=== PATIENT | female | born 1940 | race Caucasian/White ===

== ENCOUNTER 2017-01-29 13:35 | Observation (INO) | payer MEDICARE, BC ==
--- NOTE | ~2017-01-29 | HP ---
History And Physical [place] [address] [facility] [place]. [address] NAME: HAYLIE HARRIS : 38 STATUS : ADM IN PAT#: [id number] AGE: 76 ADM/REG DATE : 01/29/17 MR#: [id number] REPORT SERV DATE: 01/29/17 DICTATED BY: STEPHANIE NIEVES DATE: 01/29/17 REPORT STATUS : Draft TRANSCRIBED BY: MODL DATE: 01/29/17 DATE OF ADMISSION: 01/29/2017 INDICATION: Acute thrombus, jugular system. HISTORY OF PRESENT ILLNESS: The patient is a 76-year-old white female, renal transplant patient with underlying coronary artery disease, hypertension, hyperlipidemia, and peripheral vascular disease. At her recent clinic visit, she was noted to have a carotid bruit and she was sent for carotid Dopplers. I was notified from the vascular lab today that she had an acute thrombus in her jugular system. She is admitted for further evaluation and IV heparin therapy. CURRENT HOME MEDICATIONS: Allopurinol 100 per day, carvedilol 6.25 b.i.d., Chlor-Trimeton p.r.n., Crestor 5 at h.s., cyclosporine 200 mg every other day, Ocuvite daily, oxycodone p.r.n., prednisone 10 per day, and vitamin B12 daily. ALLERGIES OR INTOLERANCES: Aspirin, benzodiazepine, cephalosporins, IV contrast dye, iodine, lorazepam, and Povidone soap. SOCIAL HISTORY: Negative for alcohol or tobacco use. FAMILY HISTORY: Negative for coronary disease at a young age. PAST MEDICAL HISTORY/REVIEW OF SYSTEMS: See note above. She has had a previous thoracic aortic dissection, [place] type A in 2011, resulting in six-month hospital course and a hospitalization at [facility]. She has moderate prosthetic aortic valve regurgitation, previous myocardial infarction (10/1995), COPD, and obstructive sleep apnea. She is compliant with the CPAP. PHYSICAL EXAMINATION: VITAL SIGNS: 76-year-old white female with blood pressure 137/77, pulse 67 and regular, respirations 22. SKIN: No xanthelasmas. HEENT: She is normocephalic. NECK: JVD is not overtly elevated. CHEST: Nonlabored. There are no crackles. CARDIAC: S1 normal, S2 physiologically split. There is a 2/6 systolic ejection murmur heard loudest at the base, and there is a 2/6 blowing diastolic murmur heard loudest at the apex. There is a 1/6 holosystolic murmur transmitted to the axilla. ABDOMEN: Soft. EXTREMITIES: Without edema. Pulses are +1 and symmetric. NEUROLOGIC: No focal deficits. LABORATORY DATA: See vascular imaging report, not yet available on medical record system. Her BUN is 29, creatinine 1.12 with a potassium of 4.8 and glucose of 123. White count 9.9, hemoglobin 12.1, platelets 216,000. INR is 1. History And Physical [address] [address] NAME: HAYLIE HARRIS : 38 STATUS : ADM IN [facility]#: [id number] AGE: 76 ADM/REG DATE : 01/29/17 MR#: [id number] REPORT SERV DATE: 01/29/17 DICTATED BY: STEPHANIE NIEVES DATE: 01/29/17 REPORT STATUS : Draft TRANSCRIBED BY: TAWANA DATE: 01/29/17 IMPRESSION: Acute central venous thrombosis. She will be admitted for further evaluation and therapy. Consult rendered to Nephrology and Vascular Surgery. TUAN/TAWANA Stephanie Nieves M.D. / [id number] CC: Stephanie Nieves M.D. [facility]
--- NOTE | ~2017-01-29 | CN ---
Consultation Report [facility] [address] [place]. [address] NAME: HAYLIE HARRIS : 38 STATUS : ADM IN PAT#: [id number] AGE: 76 ADM/REG DATE : 01/29/17 MR#: [id number] REPORT SERV DATE: 01/29/17 DICTATED BY: TIMOTHY AUGUSTINE DATE: 01/29/17 REPORT STATUS : Draft TRANSCRIBED BY: TAWANA DATE: 01/29/17 CONSULT NOTE DATE OF CONSULTATION: 01/29/2017 REASON FOR CONSULTATION: Evaluation for DVT. BRIEF HISTORY: The patient is a 76-year-old female with a past medical history significant for an aortic dissection, carotid stenosis, colon cancer, renal failure necessitating kidney transplant, renal cell carcinoma, hypertension, COPD, hyperlipidemia, and coronary artery disease who was admitted to the hospital after she was found to have an incidental finding of an IJ DVT. I was consulted for evaluation and treatment. The patient says that she has had no facial pain or swelling. She has no shortness of breath. She has had no arm swelling. She has no chest tightness. She said that she was somewhat surprised that she was admitted to the hospital because of this blood clot. She says that she has had a known history of narrowing in her arteries in her neck and she has actually had surgery for this in the past. She said that the surgery was performed here at [facility], but she is unable to recall who performed the surgery. The patient is unable to provide any other reliable history and suggests that I call her daughters, who unfortunately are unavailable via the telephone. Once again, the patient denies any other complaints. PAST MEDICAL HISTORY: As above. She also has a history of chronic gastritis, osteoporosis, gout, and DJD. She has obstructive sleep apnea and wears a CPAP. PAST SURGICAL HISTORY: Includes kidney transplant and prosthetic aortic valve replacement. She has had PCIs and a tracheostomy. SOCIAL HISTORY: She denies tobacco, alcohol, or drug use. FAMILY HISTORY: Unknown. MEDICATIONS AND ALLERGIES: Documented on the chart and were reviewed. She has numerous allergies documented. REVIEW OF SYSTEMS: A complete review of systems was performed and is negative with the exception of the aforementioned findings. PHYSICAL EXAMINATION: VITAL SIGNS: Documented on the chart and were reviewed. GENERAL: The patient is awake, alert, oriented, and in no apparent distress. She is a poor historian. HEENT/NECK: Her head and neck examination is benign with the exception of the scars from her tracheostomy and her left carotid endarterectomy. I do not appreciate any carotid Consultation Report [place] [address] [address] NAME: HAYLIE HARRIS : 38 STATUS : ADM IN PAT#: [id number] AGE: 76 ADM/REG DATE : 01/29/17 MR#: [id number] REPORT SERV DATE: 01/29/17 DICTATED BY: TIMOTHY AUGUSTINE DATE: 01/29/17 REPORT STATUS : Draft TRANSCRIBED BY: MODRaz DATE: 01/29/17 bruits. She has no facial swelling. HEART: Her heart has a regular rate and rhythm. LUNGS: Clear. ABDOMEN: Soft, nontender, and nondistended with a nonaneurysmal aorta. EXTREMITIES: She has a normal complement of upper extremity pulses without any significant edema or ischemic ulcerations. She has weakly palpable femoral pulses. I think I could feel popliteal and pedal pulses. She has no significant edema or ischemic ulcerations. NEUROLOGICAL: Grossly nonfocal. MUSCULOSKELETAL: Otherwise, benign. LABORATORY DATA: Her laboratory investigations are fairly unremarkable. She has no imaging reports available. I went back and found a carotid duplex that was performed today. On the imaging, it looks like she has a left internal jugular DVT. Once again, report is not available and the images that are available for my review are thumbnail size images, so I cannot really tell what is going on with the carotid arteries. There are reports of her having a thoracic aortic aneurysm that I confirmed on CT imaging. There is no CT of the chest available. The upper cuts of her CT of her abdomen showed a 3.7 cm thoracic aneurysm. ASSESSMENT AND PLAN: It looks like this lady has a left internal jugular vein deep venous thrombosis. There was some question about her having superior vena cava syndrome, but I do not appreciate any significant edema and she does not have any complaints that would fit with this. I would simply anticoagulate her for the next three months. This deep venous thrombosis actually looks somewhat chronic in nature based on the echogenicity that I saw on the thumbnail images. With regard to her thoracic aneurysm, I would like to see her back in a year with a CT scan of her chest, abdomen, and pelvis, so I can get better idea of what is going on. I think this could be performed without intravenous contrast until we see that this would potentially meet size criteria to fix. I am not sure that she would be a very good candidate for repair, but I think that we should at least see how big her aorta is before jumping to that conclusion. I will be available as needed. FOOD STYLIST/MODL Timothy Augustine M.D. / [id number] CC: Radha Kauffman M.D.
[~2017-01-29 13:35] MED LIST: ACET500CAP PO; ACETUDL PEG; ANTACID PO; ATROVENTUD INH; ATV1 IV; AZACT2 IV; BACDS PO; BANOPHEN25 MG PEG; BANOPHEN25 MG PO; BISR PR; C1 PO; CARBIDOPA-LEVODOPA PO; CELEXA10 MG/5 ML OR; CELEXA10 PEG; CELEXA10 PO; CHLOR-PHENIR4 MG PO; CHLOR-TRIMETON4 MG PO; CITRACAL PO; COREG PO; COREG12 PO; COREG6 PO; COUMADIN3 MG PO; CRESTOR10 PO; CRESTOR20 MG PO; CRESTOR5 MG PO; CYANO1000T PO; CYCLOSPORINE 100 MG PO; CYCLOSPORINE100 MG OR; CYCLOSPORINE100 MG PO; CYCLOSPORINE25 MG PEG; DIOCTO50 MG/5 ML PEG; DUONEB INH; FISH-EPA1000 MG PO; FLEX PO; GENGRAF100 MG OR; GERI-LANTA PEG; HYDRALAZINE PO; ISOPTINSR PO; JEVITY 1.2 PEG; L40 IV; LACT30UDL PO; LEVAQUIN5T PO; LOP25 PEG; LOP25 PO; LORTAB 5 PO; LOVENOX40 SC; MAALOX; MAALOX PO; MIRALAXPKT PEG; MIRALAXPKT PO; NEORAL100 MG/ML PEG; NEXIUM OTC PO; NEXIUM20 M1 PO; NEXIUM40 PEG; NORCO1 TA1 PO; NORV5 PO; NOVOLOG SC; NYS500UDL PO; OCUVITE PO; P1 PO; P10 PEG; P10 PO; PARC25-100 PEG; PAX10 PO; PCET; PCET PO; PERFOROM INH; PHENADOZ25 MG RE; PHENERGAN 2525 MG/M1 PO; PHILLIPS M800 MG/5 M PO; PRED50B PO; PREV30 PO; PROTONIX PO; REG PO; REG5 PEG; ROBITUSS12 PEG; SANDIMMUNE100 MG PO; SIN25 PO; SOLU-CORTEF100 MG IV; T PO; TICLID250 MG OR; TIGAN300 MG PEG; TRAZ50 PO; TRAZODONE150 MG PO; TUMSROLL; TYLENOL 8 HR650 MG PO; TYLENOL ARTH650 MG PR; ULTRAM50 PO; V5 PO; VANCOCIN HCL125 MG PO; X25 PO; Z100 PO; ZANTAC 150 PO; ZANTAC 75 PO; ZEMPLAR2 PO; ZOCOR40 PEG; ZOFRAN2ML IM; ZOFRAN2ML IV; [UNRECOGNIZED DRUG - CODE] IV; [UNRECOGNIZED DRUG - OTHER] PO
[2017-01-29 14:50] LABS: BASOPHILS 0.1 %; BASOPHILS ABSOLUTE 0.01 10/3/uL (0.0-0.16); EOSINOPHILS 0 %; HEMATOCRIT 38.4 % (36.0-48.0); HEMOGLOBIN 12.1 g/dL (12.0-16.0); IMMATURE GRANULOCYTES 0.3 %; IMMATURE GRANULOCYTES ABSOLUTE 0.03 10/3/uL (0.0-0.11); LYMPHOCYTES 10.2 %; LYMPHOCYTES ABSOLUTE 1.01 10/3/uL (0.67-4.30); MEAN CORPUS HGB CONC 31.5 g/dL (32.0-36.0); MEAN CORPUSCULAR HEMOGLOB 31.2 pg (26.0-34.0); MONOCYTES 2.8 %; MONOCYTES ABSOLUTE 0.28 10/3/uL (0.21-1.20); NEUTROPHILS 86.6 %; PLATELET COUNT 216 10/3/uL (150-400); RBC DISTRIBUTION WIDTH 15.4 % (12.0-16.0); RED CELL COUNT 3.88 10/6/uL (4.0-5.6); WHITE BLOOD CELLS 9.9 10/3/uL (4.5-10.5)
[2017-01-29 14:52] LABS: MANUAL DIFF NO %
[2017-01-29 14:57] LABS: PARTIAL THROMBO TIME 28.3 SEC (22.5-37.2); PROTIME (NOT ORD) 13.4 SEC (12.0-14.5)
[2017-01-29 15:07] LABS: A/G RATIO 0.9 (0.7-1.9); ALBUMIN 3.5 G/DL (3.5-5.0); ALKALINE PHOSPHATASE 72 U/L (45-117); BUN (BLOOD UREA NITROGEN) 29 MG/DL (6-23); CALCIUM, SERUM 9.3 MG/DL (8.5-10.4); CHLORIDE, SERUM 106 MMOL/L (96-112); CO2 (CARBON DIOXIDE) 31 MMOL/L (24-34); CREATININE 1.12 MG/DL (0.55-1.02); GFR AFRICAN AMERICAN 55 ML/MIN (>=60); GFR NON AFRICAN AMERICAN 47 ML/MIN (>=60); GLOBULIN 3.9 G/DL (2.5-4.1); GLUCOSE, SERUM 123 MG/DL (60-99); POTASSIUM, SERUM 4.8 MMOL/L (3.5-5.3); SGOT(AST) 11 U/L (5-40); SGPT(ALT) 12 U/L (5-65); SODIUM, SERUM 143 MMOL/L (135-148); TOTAL BILIRUBIN 0.5 MG/DL (0-1.2); TOTAL PROTEIN 7.4 G/DL (6.0-8.5)
[2017-01-29] MEDS ORDERED: P10 PO (21:03)
[2017-01-29] MEDS ORDERED: SANDIMMUNE25 MG PO (21:03)
[2017-01-29] MEDS ORDERED: OCUVITE PO (21:04)
[2017-01-29] MEDS ORDERED: COREG6 PO (21:05)
[2017-01-29] MEDS ORDERED: VITAMIN B-12 PO (21:05)
[2017-01-29] MEDS ORDERED: PAX10 PO (21:06)
[2017-01-29] MEDS ORDERED: CRESTOR5 MG PO (21:07)
[2017-01-29] MEDS ORDERED: Z100 PO (21:08)
[2017-01-29] MEDS ORDERED: CHLOR-PHENIR4 MG PO (21:09)
[2017-01-29] MEDS ORDERED: PCET PO (21:10)
[2017-01-29] MEDS ORDERED: GENGRAF100 MG PO (21:22)
[2017-01-30 02:47] LABS: ASCORBIC ACID (UR NOT ORDER) NEG (NEG); BILIRUBIN, URINE NEGATIVE (NEG); KETONE, URINE NEGATIVE (NEG); LEUKOCYTE ESTERASE(NOT OR TRACE (NEG); WBC (NOT ORDERED) (RFLEX) 13 (0-5)
[2017-01-30 04:58] LABS: BASOPHILS 0.3 %; BASOPHILS ABSOLUTE 0.03 10/3/uL (0.0-0.16); EOSINOPHILS 1.4 %; EOSINOPHILS ABSOLUTE 0.16 10/3/uL (0.0-0.53); HEMATOCRIT 35.8 % (36.0-48.0); HEMOGLOBIN 11.3 g/dL (12.0-16.0); IMMATURE GRANULOCYTES 0.2 %; IMMATURE GRANULOCYTES ABSOLUTE 0.02 10/3/uL (0.0-0.11); LYMPHOCYTES 22.3 %; MEAN CORPUS HGB CONC 31.6 g/dL (32.0-36.0); MEAN CORPUSCULAR HEMOGLOB 30.6 pg (26.0-34.0); MONOCYTES 6.3 %; MONOCYTES ABSOLUTE 0.73 10/3/uL (0.21-1.20); NEUTROPHILS 69.5 %; PLATELET COUNT 215 10/3/uL (150-400); RBC DISTRIBUTION WIDTH 15.4 % (12.0-16.0); RED CELL COUNT 3.69 10/6/uL (4.0-5.6); WHITE BLOOD CELLS 11.6 10/3/uL (4.5-10.5)
[2017-01-30 04:59] LABS: MANUAL DIFF NO %
[2017-01-30 05:00] LABS: INTERNATIONAL NORMAL RATI 1.2 UNITS (-); PROTIME (NOT ORD) 15.1 SEC (12.0-14.5)
[2017-01-30 05:12] LABS: ALBUMIN 2.9 G/DL (3.5-5.0); CALCIUM, SERUM 8.7 MG/DL (8.5-10.4); CHLORIDE, SERUM 104 MMOL/L (96-112); CO2 (CARBON DIOXIDE) 27 MMOL/L (24-34); CREATININE 1.52 MG/DL (0.55-1.02); GFR AFRICAN AMERICAN 38 ML/MIN (>=60); GFR NON AFRICAN AMERICAN 33 ML/MIN (>=60); GLUCOSE, SERUM 100 MG/DL (60-99); POTASSIUM, SERUM 4.3 MMOL/L (3.5-5.3); SODIUM, SERUM 144 MMOL/L (135-148)
[2017-01-30 05:21] LABS: BUN (BLOOD UREA NITROGEN) 37 MG/DL (6-23)
== END 2017-01-30 16:43 | disposition home health service (06) ==
LOC: CDU1 13:35 → 6NO 18:42
PROVIDERS: Internal Medicine Clinical Cardiac Electrophysiology; Obstetrics & Gynecology
DX: I82.C19 Acute embolism and thrombosis of unspecified internal jugular vein (principal); I12.9 Hypertensive chronic kidney disease with stage 1 through stage 4 chronic kidney disease, or unspecified chronic kidney disease; N18.9 Chronic kidney disease, unspecified; I25.10 Atherosclerotic heart disease of native coronary artery without angina pectoris; I25.2 Old myocardial infarction; E78.5 Hyperlipidemia, unspecified; Z90.49 Acquired absence of other specified parts of digestive tract; H50.40 Unspecified heterotropia; J44.9 Chronic obstructive pulmonary disease, unspecified; G47.33 Obstructive sleep apnea (adult) (pediatric); K29.50 Unspecified chronic gastritis without bleeding; Z94.0 Kidney transplant status; M81.0 Age-related osteoporosis without current pathological fracture; M10.9 Gout, unspecified; Z79.899 Other long term (current) drug therapy; Z98.890 Other specified postprocedural states; I73.9 Peripheral vascular disease, unspecified; Z88.1 Allergy status to other antibiotic agents
CPT/HCPCS: 80053; 80069; 81001; 85025; 85610; 85730; 96372; 96374; 96375; A9270-GY; C9113; G0378; J0360; J7502